=== PATIENT | female | born 1995 | race African-American/Black ===

== ENCOUNTER 2018-11-18 12:50 | Emergency (ER) | payer MEDICAID ==
[~2018-11-18] VITALS: Ht 167.6 cm; Wt 65.0 kg
[2018-11-18] MEDS ORDERED: ACETAMINOPHEN 325MG TABLET PO ONE (13:15)
[2018-11-18] MEDS ORDERED: TETANUS, DIPHTHERIA, PERTUSSIS VAC/PF 0.5ML (>7YR OLD) IM ONE (13:15)
[2018-11-18] MEDS ORDERED: BACITRACIN ZINC OINT UDPKT TOP ONE (13:15)
[2018-11-18 16:10] VITALS: BP 123/85
== END 2018-11-18 16:30 | disposition home or self-care (01) ==
LOC: ER 12:50
DX: S00.81XA Abrasion of other part of head, initial encounter (principal); S60.811A Abrasion of right wrist, initial encounter; F10.129 Alcohol abuse with intoxication, unspecified; Y90.0 Blood alcohol level of less than 20 mg/100 ml; V18.4XXA Pedal cycle driver injured in noncollision transport accident in traffic accident, initial encounter; Y93.89 Activity, other specified; Y92.89 Other specified places as the place of occurrence of the external cause; Y99.8 Other external cause status
CPT/HCPCS: 70486; 73030; 73110; 81025; 90471; 90715; 99284

== ENCOUNTER 2018-11-22 02:47 | Emergency (ER) | payer MEDICAID ==
[~2018-11-22] VITALS: Ht 172.7 cm; Wt 64.0 kg
[2018-11-22] MEDS ORDERED: MAGNESIUM/ALUMINUM HYDROXIDE/SIMETHICONE 30ML UDC PO ONE (03:15)
[2018-11-22] MEDS ORDERED: VISCOUS LIDOCAINE 2% 15 ML UDC PO ONE (03:15)
[2018-11-22 03:40] LABS: BASOPHILS % 0.4 % (0.0-2.0); EOSINOPHILS % 1.2 % (0.0-5.0); HEMATOCRIT. 39.9 % (36.0-48.0); HEMOGLOBIN. 13.9 g/dL (12.0-16.0); LYMPHOCYTES % 23.6 % (20.0-50.0); MEAN CORPUSCULAR HEMOGLOBIN 32.7 pg (28.0-32.0); MEAN CORPUSCULAR VOLUME 93.7 fL (81.0-99.0); MEAN PLATELET VOLUME 8.8 fl (7.4-10.4); MONOCYTES % 9.7 % (2.0-8.0); NEUTROPHILS % 65.1 % (40.0-76.0); PLATELET 245 x1000/uL (130-400); RED BLOOD CELL COUNT 4.26 mill/uL (4.2-5.4)
[2018-11-22 03:50] LABS: CLARITY URINE CLOUDY (CLEAR); COLOR URINE YELLOW (YELLOW); KETONES URINE TRACE (NEGATIVE); LEUKOCYTE ESTERASE URINE TRACE (NEGATIVE); NITRITE URINE NEGATIVE (NEGATIVE); OCCULT BLOOD URINE 2+ (NEGATIVE); PH URINE 6.5 (4.5-8.0); PROTEIN URINE NEGATIVE (NEGATIVE); SPECIFIC GRAVITY URINE 1.023 (1.005-1.030)
[2018-11-22 03:52] LABS: CHLORIDE 106 mEq/L (98-107)
[2018-11-22 04:16] LABS: *BENZODIAZEPINES SCREEN URINE NEGATIVE (NEGATIVE); *COCAINE SCREEN URINE NEGATIVE (NEGATIVE)
[2018-11-22 04:17] LABS: *AMPHETAMINES SCREEN URINE NEGATIVE (NEGATIVE); METHADONE URINE SCREEN NEGATIVE (NEGATIVE); OPIATES URINE SCREEN NEGATIVE (NEGATIVE); PHENCYCLIDINE URINE SCREEN NEGATIVE (NEGATIVE)
[2018-11-22 04:18] LABS: *BARBITURATES SCREEN URINE NEGATIVE (NEGATIVE)
[2018-11-22 04:34] LABS: CANNABINOID URINE SCREEN PRESUMTIVE POSITIVE (NEGATIVE)
[2018-11-22 05:00] VITALS: BP 128/76
== END 2018-11-22 05:03 | disposition home or self-care (01) ==
LOC: ER 02:47
DX: R07.89 Other chest pain (principal); M25.531 Pain in right wrist; F17.200 Nicotine dependence, unspecified, uncomplicated; F12.10 Cannabis abuse, uncomplicated
CPT/HCPCS: 36415; 73110; 80053; 80305; 81003; 81025; 83690; 83880; 85025; 86703; 93005; 99284; 99406; Z7610

== ENCOUNTER 2019-01-13 02:05 | Emergency (ER) | payer MEDICAID ==
[~2019-01-13] VITALS: Ht 198.1 cm; Wt 65.0 kg
[2019-01-13] MEDS ORDERED: TETRACAINE 0.5% OPHTH DROPS 4ML LEFTEYE ONE (02:45)
[2019-01-13] MEDS ORDERED: FLUORESCEIN SODIUM 1MG/STRIP LEFTEYE ONE (02:45)
[2019-01-13] MEDS ORDERED: HYDROCODONE/ACETAMINOPHEN 5/325MG TABLET PO ONE (03:00)
[2019-01-13 04:35] VITALS: BP 115/75
== END 2019-01-13 05:44 | disposition home or self-care (01) ==
LOC: ER 02:05
DX: S05.92XA Unspecified injury of left eye and orbit, initial encounter (principal); Y08.89XA Assault by other specified means, initial encounter; Y93.89 Activity, other specified; Y92.89 Other specified places as the place of occurrence of the external cause; Y99.8 Other external cause status
CPT/HCPCS: 70486; 81025; 99284